=== PATIENT | female | born 1995 | race Caucasian/White ===

== ENCOUNTER 2024-04-25 11:58 | Emergency (ER) | payer OTHER | END 2024-04-25 14:10 | disposition home or self-care (01) | LOC: CSHERS 11:58 | DX: J06.9 Acute upper respiratory infection, unspecified (principal) | CPT/HCPCS: 71045; 87428 ==

== ENCOUNTER 2024-05-23 18:26 | Day surgery (SDC) | payer OTHER ==
[2024-05-23 19:12] VITALS: BMI 29.7
[2024-05-23] MEDS ORDERED: hydrALAZINE 20 MG/ML VIAL SLOW IVP PRN (19:53)
[2024-05-23 20:14] LABS: Bilirubin Neg (Negative); Blood, Urine Negative (Negative); Glucose, Urine (Dipstick) Normal (Negative); Ketone, Urine Negative (Negative); Leukocyte Negative (Negative); Nitrite Negative (Negative); Protein, Urine (Dipstick) 15 mg/dl (Neg-Trace); Urobilinogen Normal mg/dL (Less than 2)
[2024-05-23 20:28] LABS: Clarity Hazy (Clear)
[2024-05-23 20:37] LABS: CAUTI Indications for Culture Pregnancy; RBC/HPF 0-3 HPF (0-3); WBC/HPF 0-3 HPF (0-3)
[2024-05-23 20:38] LABS: Bacteria/HPF 2+ HPF (None Seen); Squamous Epithelial 0-3 HPF (0-3)
[2024-05-23 20:39] LABS: Mucous/LPF 1+ LPF (<2+)
[2024-05-23 20:41] LABS: Urine Culture Reflex Yes Yes
== END 2024-05-23 21:25 | disposition home or self-care (01) ==
LOC: CSHLD/OP 18:26
PROVIDERS: ATTEND Family Medicine
DX: O99.891 Other specified diseases and conditions complicating pregnancy (principal); R10.2 Pelvic and perineal pain; O98.413 Viral hepatitis complicating pregnancy, third trimester; B19.20 Unspecified viral hepatitis C without hepatic coma; Z3A.35 35 weeks gestation of pregnancy; Z79.899 Other long term (current) drug therapy
CPT/HCPCS: 81001; 87086; 87480; 87510; 87660; 99285

== ENCOUNTER 2024-06-01 19:58 | Emergency (ER) | payer OTHER ==
[2024-06-01] MEDS ORDERED: diphenhydrAMINE 25 MG CAP ONE (22:17)
[2024-06-01 22:44] LABS: ALT (SGPT) 16 U/L (8-55); AST (SGOT) 19 U/L (5-34); Albumin 2.8 g/dL (3.5-5.0); Alkaline Phosphatase 126 U/L (40-110); Anion Gap 14 mmol/L (10-20); BUN (Urea Nitrogen) 6 mg/dL (7.0-18.7); Bilirubin, Total 0.3 mg/dL (0.2-1.2); Calc. Creatinine Clearance 0 mL/min (70-130); Calcium 9.2 mg/dL (7.8-10.44); Carbon Dioxide 17 mmol/L (22-29); Chloride 109 mmol/L (98-107); Estimated GFR 122; Glucose 98 mg/dL (70-105); Protein, Total 6.8 g/dL (6.0-8.3); Sodium 136 mmol/L (136-145)
== END 2024-06-01 23:22 | disposition home or self-care (01) ==
LOC: CSHERS 19:58
DX: L29.9 Pruritus, unspecified (principal)
CPT/HCPCS: 80053; 99283

== ENCOUNTER 2024-06-15 19:49 | Day surgery (SDC) | payer OTHER ==
[2024-06-15 20:21] VITALS: BMI 33.6
[2024-06-15 21:55] LABS: Influenza A by NAA DETECTED (NotDetected); Influenza B by NAA Not Detected (NotDetected); RSV by NAA Not Detected (NotDetected); SARS-CoV-2 NAA Rapid Test Not Detected (NotDetected)
[2024-06-15] MEDS: Guaifenesin DM 100-10/5 ML UDCUP PO PRN (22:29)
== END 2024-06-15 22:30 | disposition home or self-care (01) ==
LOC: CSHERS 19:49 → CSHLD/OP 19:52
PROVIDERS: ATTEND Family Medicine
DX: O36.8130 Decreased fetal movements, third trimester, not applicable or unspecified (principal); O99.513 Diseases of the respiratory system complicating pregnancy, third trimester; J10.1 Influenza due to other identified influenza virus with other respiratory manifestations; O99.891 Other specified diseases and conditions complicating pregnancy; R10.2 Pelvic and perineal pain; M54.50 Low back pain, unspecified; O24.419 Gestational diabetes mellitus in pregnancy, unspecified control; O98.413 Viral hepatitis complicating pregnancy, third trimester; B19.20 Unspecified viral hepatitis C without hepatic coma; Z3A.38 38 weeks gestation of pregnancy; Z79.899 Other long term (current) drug therapy
CPT/HCPCS: 0241U; 76819; 99284